=== PATIENT | male | born 1995 | race American Indian/Alaskan Native ===

== ENCOUNTER 2019-06-21 22:26 | Emergency (ER) | payer OTHER ==
--- NOTE | 2019-06-22 00:19 | Emergency Department Report ---
ED Dysuria HPI - HPI Chief Complaint: Dizziness Stated Complaint: DIZZINESS Time Seen by Provider: 06/22/19 00:18 Location of Discomfort: Urethra (dysuria) Severity: None Symptoms: Dysuria: No, Frequency: No, Suprapubic Pain: No, Flank Pain: No, Fever: No, Hematuria: No, Abdominal Pain: No, Previous UTI's: No Other History: PT GOT A CALL FROM FEMALE WHO TOLD HIM HE MAY HAVE STI. HE HAS NO SYMPTOMS ED Review of Systems ROS: Stated complaint: DIZZINESS Other details as noted in HPI Comment: All other systems reviewed and negative ED Past Medical Hx - Past Medical History Previous Medical History?: No - Surgical History Past Surgical History?: No - Family History Family history: no significant - Social History Smoking Status: Current Some Day Smoker Dysuria Exam - Exam General: Vital signs noted. No distress. Alert and acting appropriately. Exam: Yes Moist Mucous Membranes, No CVA Tenderness, No Abdominal Tenderness, No Rigidity or Guarding ED Course Vital Signs 06/21/19 22:32 Temperature 98.0 F Pulse Rate 94 H Respiratory 18 Rate Blood Pressure 150/88 O2 Sat by Pulse 98 Oximetry ED Medical Decision Making - Medical Decision Making UA AND GC SENT CALL PT IF POSITIVE HE DID NOT WANT TREATED TODAY VSS NO SYMPTOMS ABD SNT DENIES DIZZINESS Vital Signs 06/21/19 22:32 Temperature 98.0 F Pulse Rate 94 H Respiratory 18 Rate Blood Pressure 150/88 O2 Sat by Pulse 98 Oximetry - Differential Diagnosis RO STI Critical care attestation.: If time is entered above; I have spent that time in minutes in the direct care of this critically ill patient, excluding procedure time. ED Disposition Clinical Impression: Concern about STD in male without diagnosis Disposition: DC-01 TO HOME OR SELFCARE Is pt being admited?: No Does the pt Need Aspirin: No Condition: Stable Instructions: Safe Sex (ED) Referrals: SPEEDY VEGA MD [Primary Care Provider] - 3-5 Days Time of Disposition: 00:22
[2019-06-22 01:06] VITALS: BP 134/76
[2019-06-22 01:12] LABS: Bilirubin,Urine NEG (Negative); Blood,Urine NEG (Negative); Color,Urine Yellow (Yellow); Mucus,Urine FEW /HPF; Protein,Urine <15 mg/dL mg/dL (Negative); WBC,Urine < 1.0 /HPF (0.0-6.0)
== END 2019-06-22 01:04 | disposition home or self-care (01) ==
LOC: ED 22:26
DX: R30.0 Dysuria (principal)
CPT/HCPCS: 81001; 87591; 99283